=== PATIENT | female | born 1950 | race Caucasian/White ===

== ENCOUNTER 2017-10-15 17:13 | Inpatient (IN) | payer OTHER, MEDICARE ==
[~2017-10-15] VITALS: Ht 157.5 cm; Wt 90.3 kg
[2017-10-15 17:19] VITALS: BP 163/80
[2017-10-15] MEDS ORDERED: NORVASC5 MG PO (17:24)
[2017-10-15] MEDS ORDERED: COZAAR 50 MG TA50 M1 PO (17:25)
[2017-10-15] MEDS ORDERED: SERTRALINE HCL50 MG PO (17:25)
[2017-10-15 18:05] LABS: URINE BILIRUBIN NEGATIVE (Negative); URINE BLOOD NEGATIVE (Negative); URINE CLARITY CLEAR; URINE COLOR YELLOW; URINE GLUCOSE-RANDOM NEGATIVE (Negative); URINE KETONES NEGATIVE (Negative); URINE LEUKOCYTES-REFLEX NEGATIVE (Negative); URINE NITRITE-REFLEX NEGATIVE (Negative); URINE PROTEIN NEGATIVE (Negative); URINE SPECIFIC GRAVITY 1.015 (1.005-1.030); URINE UROBILINOGEN 0.2 E.U./dl (0.2-1.0)
[2017-10-15 18:14] LABS: ABSOLUTE BASOPHILS 0.1 thou/uL (0.0-0.2); ABSOLUTE EOSINOPHILS 0.1 thou/uL (0.0-0.7); ABSOLUTE LYMPHOCYTES 2.1 thou/uL (0.8-5.3); ABSOLUTE MONOCYTES 0.5 thou/uL (0.0-1.2); ABSOLUTE NEUTROPHILS 6.1 thou/uL (1.6-8.1); BASOPHILS 0.6 %; EOSINOPHILS 1.4 %; HEMATOCRIT 39.6 % (37.0-47.0); HEMOGLOBIN 13.7 gm/dL (12.0-15.0); LYMPHOCYTES 23.2 %; MCH 33.8 pg (26.0-34.0); MCHC 34.6 g/dL (28.0-37.0); MCV 97.6 fL (80.0-100.0); MONOCYTES 5.8 %; MPV 10.7 fl. (7.2-11.1); NUCLEATED RBCS 0 /100WBC; PLATELET COUNT* 174 thou/uL (150-400); RBC 4.06 mil/uL (4.20-5.00); RDW-CV 12.9 % (10.5-14.5); WBC 8.9 thou/uL (4.0-11.0)
[2017-10-15 18:27] LABS: CALCIUM 9.3 mg/dL (8.5-10.1); CREATININE 0.9 mg/dL (0.6-1.3); POTASSIUM 3.8 mmol/L (3.5-5.1)
[2017-10-15 18:33] LABS: ALBUMIN 3.9 g/dL (3.4-5.0); TOTAL BILIRUBIN 0.4 mg/dL (<0.1-1.0); TOTAL PROTEIN 7.1 g/dL (6.4-8.2)
[2017-10-15 18:51] LABS: TROPONIN-I LEVEL 1.56 ng/mL (<0.06)
[2017-10-15 19:44] LABS: APTT 36.6 Seconds (25.0-31.3)
[2017-10-15 20:30] VITALS: BP 145/80
[2017-10-15 21:22] VITALS: BP 137/73
[2017-10-16] VITALS (18 sets, daily range): BP systolic 100–154; BP diastolic 51–86
[2017-10-16 10:01] LABS: CHOLESTEROL 244 mg/dL (<200); HDL CHOLESTEROL 35 mg/dL (>40); LDL CHOLESTEROL 139 mg/dL (<100); TRIGLYCERIDE 350 mg/dL (<150); VLDL 70 mg/dL (<40)
[2017-10-16 10:04] LABS: SERUM ASSESSMENT Clear
--- NOTE | 2017-10-16 15:14 | 2DMMODE ---
[place] [address] 2 D/M-MODE ECHOCARDIOGRAM Name: JUAN F MOTA Room: [address] IN [facility]#: [id number] Admission: 10/15/17 Attend Phys: Kurtis Lara, Discharge: Date of : 50 Date of Service: 10/16/17 1513 Report #: [id number] THIS REPORT FOR: //name// APPROVED REPORT Study performed: 10/16/2017 10:58:37 EXAM: Comprehensive 2D, Doppler, and color-flow Echocardiogram Patient Location: In-Patient Room #: [facility] Status: routine BSA: 1.90 HR: 65 bpm BP: 154/77 mmHg Rhythm: NSR Other Information Study Quality: Good Indications Acute OH Chest Pain 2D Dimensions LVEF(%): 64.90 (>50%) IVSd: 13.33 (7-11mm) LVOT Diam: 18.69 (18-24mm) LVDd: 43.10 mm PWd: 9.66 (7-11mm) Ascending Ao: 28.88 (22-36mm) LVDs: 27.91 (25-40mm) Aortic Root: 29.73 mm Hernandez's LVEF: 64.90 % Volumes Left Atrial Volume (Systole) LA ESV Index: 31.90 mL/m2 Aortic Valve AoV Peak Wilberto.: 1.55 m/s AO Peak Gr.: 9.64 mmHg LVOT Max P.42 mmHg AO Mean Gr.: 4.93 mmHg LVOT Mean P.32 mmHg LVOT Max V: 1.36 m/s AO V2 VTI: 32.19 cm LVOT Mean V: 0.82 m/s PAULINA (VTI): 2.65 cm2 LVOT V1 VTI: 31.11 [place] [address] 2 D/M-MODE ECHOCARDIOGRAM Name: JUAN F MOTA Room: [address] IN [facility].#: [id number] Admission: 10/15/17 Attend Phys: Kurtis Lara, Discharge: Date of : 50 Date of Service: 10/16/17 1513 Report #: [id number] E/A Ratio: 0.85 MV Decel. Time: 283.94 ms MV E Max Wilberto.: 0.94 m/s MV PHT: 82.34 ms MVA (PHT): 2.67 cm2 TDI E/Lateral E': 11.75 E/Medial E': 13.43 Medial E' Wilberto.: 0.07 m/s Lateral E' Wilberto.: 0.08 m/s Pulmonary Valve PV Peak Wilberto.: 1.07 m/s PV Peak Gr.: 4.60 mmHg Tricuspid Valve TR Peak Gr.: 20.34 mmHg RVSP: 25.00 mmHg Left Ventricle The left ventricle is normal size. There is normal LV segmental wall motion. There is normal left ventricular wall thickness. Left ventricular systolic function is normal. LVEF is 60-65%. Grade I - abnormal relaxation pattern. Right Ventricle The right ventricle is normal size. The right ventricular systolic function is normal. Atria The left atrium size is normal. The right atrium size is normal. Aortic Valve The aortic valve is normal in structure. No aortic regurgitation is present. There is no aortic valvular stenosis. Mitral Valve There is mitral annular calcification. Trace mitral regurgitation. No evidence of mitral valve stenosis. Tricuspid Valve The tricuspid valve is normal in structure. Trace tricuspid regurgitation. The RVSP is ___25____ mmHg. Pulmonic Valve The pulmonary valve is normal in structure. There is no pulmonic [place] [address] 2 D/M-MODE ECHOCARDIOGRAM Name: JUAN F MOTA Room: [address] IN [facility]#: [id number] Admission: 10/15/17 Attend Phys: Kurtis Lara, Discharge: Date of : 50 Date of Service: 10/16/17 1513 Report #: [id number] Great Vessels The aortic root is normal in size. IVC is normal in size and collapses with >50% inspiration Pericardium There is no pericardial effusion. <Conclusion> The left ventricle is normal size. There is normal left ventricular wall thickness. Left ventricular systolic function is normal. LVEF is 60-65%. Grade I - abnormal relaxation pattern. Trace tricuspid regurgitation. The RVSP is ___25____ mmHg. <ELECTRONICALLY SIGNED> By: Willard Mills MD, FACC 10/16/17 1513 12 151 Willard Mills MD, FACC /INF
--- NOTE | 2017-10-16 16:23 | EKG ---
[place] [address] ELECTROCARDIOGRAM REPORT Name: JUAN F MOTA Room: [address] ADM IN [facility]#: [id number] Admission: 10/15/17 Attend Phys: Kurtis Lara MD Discharge: Date of : 50 Report #: [id number] THIS REPORT FOR: //name// [facility] ED Test Date: 2017-10-15 Test Time: 18:23:10 Pat Name: JUAN F MOTA Department: Room: [facility] Gender: F Scrub Wheel Operator: STUDENT : 1950 Requested By: Jayne Jacinto Order Number: [id number] MD: Willard Mills Measurements Intervals [place] Rate: 69 P: 42 MS: 173 QRS: -14 QRSD: 90 T: 89 QT: 401 QTc: 430 Interpretive Statements Sinus rhythm Repol abnrm suggests ischemia, anterolateral No previous ECG available for comparison Electronically Signed On 10-16-2017 16:23:31 MEDICAL LEADER by Willard Mills [email or web address] <ELECTRONICALLY SIGNED> By: Willard Mills MD, [facility] 10/16/17 1623 182 182 Willard Mills MD, [facility] /EPI
--- NOTE | 2017-10-16 17:07 | EKG ---
[place] [address] ELECTROCARDIOGRAM REPORT Name: JUAN F MOTA Room: [address] ADM IN ..#: [id number] Admission: 10/15/17 Attend Phys: Kurtis Lara MD Discharge: Date of : 50 Report #: [id number] THIS REPORT FOR: //name// [facility] Test Date: 2017-10-16 Test Time: 16:46:15 Pat Name: JUAN F MOTA Department: Room: [address] Gender: F Telephone Solicitor: 27 : 1950 Requested By: Willard Mills Order Number: [id number] Reading MD: Willard Mills Measurements Intervals [place] Rate: 79 P: 51 [place]: 177 QRS: -12 QRSD: 94 T: 74 QT: 406 QTc: 466 Interpretive Statements Sinus rhythm Probable left atrial enlargement RSR' in V1 or V2, probably normal variant Borderline repolarization abnormality Compared to ECG 10/15/2017 18:23:10 RSR' in V1 or V2 now present Possible ischemia no longer present Electronically Signed On 10-16-2017 17:07:34 DISTRIBUTION DISPATCHER by Willard Mills [email or web address] <ELECTRONICALLY SIGNED> By: Willard Mills MD, FACC 10/16/17 1707 1646 1646 Willard Mills MD, FAC /EPI
--- NOTE | 2017-10-16 17:07 | EKG ---
[place] [address] ELECTROCARDIOGRAM REPORT Name: JUAN F MOTA Room: [address] ADM IN .R.#: [id number] Admission: 10/15/17 Attend Phys: Kurtis Lara MD Discharge: Date of : 50 Report #: [id number] THIS REPORT FOR: //name// [facility] Test Date: 2017-10-16 Test Time: 13:37:45 Pat Name: JUAN F MOTA Department: Room: [address] Gender: F Acid Conditioner: 27 : 1950 Requested By: Mary Case Order Number: [id number] Reading MD: Willard Mills Measurements Intervals [place] Rate: 82 P: 56 [place]: 186 QRS: 7 QRSD: 90 T: 65 QT: 406 QTc: 475 Interpretive Statements Sinus rhythm Possible left atrial enlargement Nonspecific ST depression, anterior leads Compared to ECG 10/15/2017 18:23:10 ST (T wave) deviation now present Early repolarization no longer present Possible ischemia no longer present Electronically Signed On 10-16-2017 17:07:27 RESIDENTIAL BUILDING INSPECTOR by Willard Mills [email or web address] <ELECTRONICALLY SIGNED> By: Willard Mills MD, FACC 10/16/17 1707 1337 1337 Willard Mills MD, [facility] /EPI
--- NOTE | 2017-10-16 17:14 | CON ---
[address] [address] CONSULTATION Name: JUAN F MOTA Room: [address] IN .R.#: [id number] Admission: 10/15/17 Attend Phys: Kurtis Lara MD Discharge: Date of : 50 Report #: [id number] THIS REPORT FOR: //name// CC: Kurtis SPEARS CARDIOLOGY CONSULT INDICATION: Non-ST elevation myocardial infarction. HISTORY OF PRESENT ILLNESS: The patient is a very pleasant 67-year-old white female with no prior cardiac history. For the past 3 days, she has had intermittent "heartburn." Yesterday, the heartburn was quite significant. She had nausea and vomiting and clammy feeling with this as well. She presented to the Emergency Room for further evaluation. Her initial troponin was elevated consistent with non-ST elevation myocardial infarction. She was given an aspirin, nitroglycerin and placed on a heparin drip. EKG at that time showed some subtle T-wave inversion in the lateral and anteroseptal leads. No ST elevation was identified. At the time of my interview, the patient is more comfortable. She is not having any shortness of breath. She denies palpitations. She did have some radiation of discomfort to her left arm and fingers. PAST MEDICAL HISTORY: 1. Chronic tobacco use. 2. Hypertension. 3. Mild arthritis. PAST SURGICAL HISTORY: 1. Hysterectomy. 2. Endometriosis. FAMILY HISTORY: The patient's mother had bypass surgery in her 60s. SOCIAL HISTORY: The patient works for customer service. She smokes half a pack of cigarettes daily and drinks wine nightly. ALLERGIES: CODEINE. CURRENT MEDICATIONS: Amlodipine 5 mg at bedtime, losartan 50 mg at bedtime, sertraline 50 mg at bedtime. REVIEW OF SYSTEMS: A 14-point review of systems is positive for a cough that is nonproductive, chest discomfort as outlined above, history of heart murmur, vomiting without hematemesis, medical allergies as outlined above, arthritis without connective tissue disease and she wears [place] [address] CONSULTATION Name: JUAN F MOTA Room: [address]#: [id number] Admission: 10/15/17 Attend Phys: Kurtis Lara MD Discharge: Date of : 50 Report #: [id number]. Otherwise, 14-point review of systems was unremarkable. PHYSICAL EXAMINATION: VITAL SIGNS: Stable. Blood pressure 154/77, heart rate 75. GENERAL: This is a pleasant elderly female in no distress. Mood and affect appropriate. HEENT: Extraocular muscles intact. Mucous membranes are moist. NECK: Shows no jugular venous distention. There are no carotid bruits. CHEST: Reveals clear lung richardson without wheezes or rales. CARDIOVASCULAR: Reveals a regular rhythm with a soft grade 2/6 systolic ejection murmur at the right upper sternal border. I do not appreciate a gallop. ABDOMEN: Reveals normal bowel sounds. The abdomen is soft and nontender. EXTREMITIES: Shows no edema. Peripheral pulses are 2+ and easily palpable. SKIN: Warm and dry. RADIOLOGICAL DATA: A 12-lead EKG shows sinus rhythm with some nonspecific T-wave inversion in the anterolateral and anteroseptal leads. LABORATORY DATA: Reviewed. Electrolytes are within normal limits. BUN 14, creatinine 0.9, serum glucose 132. Initial troponin was 1.56 and now 2.04. Lipid profile is pending. White blood cell count 8.9, hemoglobin 13.7, platelet count 174,000. Chest x-ray shows no acute cardiopulmonary abnormality. IMPRESSION AND RECOMMENDATIONS: 1. Non-ST elevation myocardial infarction. The patient will go for left heart catheterization and coronary angiography today. Further intervention will be pending the results of that study. At this point in time, I would continue the heparin drip. Continue daily aspirin. Check fasting lipid profile. 2. Chronic tobacco use. Cessation discussed and advised. 3. Hypertension. Continue the patient's current antihypertensive regimen, may make adjustments post-catheterization pending those results. 4. Probable hyperlipidemia. Fasting lipid profile has been obtained and is pending. 5. Cardiac murmur consistent with aortic valvular sclerosis. We will obtain echocardiogram to rule out significant stenosis. <ELECTRONICALLY SIGNED> By: Willard Mills MD, FACC 10/16/17 1714 0950 1522Secretary Giovanny Mills MD, FACC /nt
[2017-10-17] VITALS: BP 143/64
[2017-10-17 03:58] VITALS: BP 157/83
[2017-10-17 05:31] LABS: ABSOLUTE EOSINOPHILS 0.1 thou/uL (0.0-0.7); ABSOLUTE LYMPHOCYTES 1.1 thou/uL (0.8-5.3); ABSOLUTE MONOCYTES 0.4 thou/uL (0.0-1.2); ABSOLUTE NEUTROPHILS 5.1 thou/uL (1.6-8.1); BASOPHILS 0.2 %; EOSINOPHILS 1.1 %; HEMATOCRIT 35.2 % (37.0-47.0); HEMOGLOBIN 12.4 gm/dL (12.0-15.0); LYMPHOCYTES 16.5 %; MCHC 35.2 g/dL (28.0-37.0); MCV 96.5 fL (80.0-100.0); MONOCYTES 5.9 %; NUCLEATED RBCS 0 /100WBC; PLATELET COUNT* 147 thou/uL (150-400); POLYS 76.3 %; RBC 3.65 mil/uL (4.20-5.00); RDW-CV 12.6 % (10.5-14.5); WBC 6.7 thou/uL (4.0-11.0)
[2017-10-17 05:36] LABS: CALCIUM 8.7 mg/dL (8.5-10.1)
[2017-10-17 07:09] VITALS: BP 138/81
[2017-10-17 08:55] VITALS: BP 138/81
[2017-10-17 09:04] VITALS: BP 138/81
[2017-10-17] MEDS ORDERED: BRILINTA90 MG PO (09:13)
[2017-10-17] MEDS ORDERED: LOPRESSOR25 PO (09:13)
[2017-10-17] MEDS ORDERED: ASPIR 8181 MG PO (09:14)
[2017-10-17] MEDS ORDERED: LIPITOR40 MG PO (09:14)
[2017-10-17] MEDS ORDERED: NITROGLYCERIN0.4 MG SUBLING (09:15)
[2017-10-17 12:32] VITALS: BP 138/81
--- NOTE | 2017-10-17 13:11 | EKG ---
[place] [address] ELECTROCARDIOGRAM REPORT Name: JUAN F MOTA Room: [address] ADM IN [facility].#: [id number] Admission: 10/15/17 Attend Phys: Kurtis Lara MD Discharge: Date of : 50 Report #: [id number] THIS REPORT FOR: //name// [facility] Test Date: 2017-10-17 Test Time: 08:43:09 Pat Name: JUAN F MOTA Department: Room: [address] Gender: F Isotope Technician: 14 : 1950 Requested By: Markel Ruvalcaba Order Number: [id number] Reading MD: Markel Ruvalcaba Measurements Intervals [place] Rate: 72 P: 46 [place]: 184 QRS: -25 QRSD: 92 T: 90 QT: 402 QTc: 440 Interpretive Statements Sinus rhythm Borderline left axis deviation RSR' in V1 or V2, probably normal variant Nonspecific repol abnormality, lateral leads Compared to ECG 10/16/2017 16:46:15 No significant changes Electronically Signed On 10-17-2017 13:11:16 WATCHER LOOKOUT TOWER by Markel Ruvalcaba [email or web address] <ELECTRONICALLY SIGNED> By: Markel Ruvalcaba MD, FAC 10/17/17 1311 0843 0843 Markel Ruvalcaba MD, [facility] /EPI
--- NOTE | 2017-10-19 18:17 | CARD ---
[address] [address] CARDIAC CATH REPORT Name: JUAN F MOTA Room: [address]#: [id number] Admission: 10/15/17 Attend Phys: Kurtis Lara MD Discharge: 10/17/17 Date of : 50 Report #: [id number] THIS REPORT FOR: //name// APPROVED REPORT Patient Details Patient Status: In-Patient Room #: 226 The patient is a 67 year-old female Event Personnel Willard Mills Biological Science Technician Fish, Joanne Salgado RN Auto Self Service Station Attendant, Linda Ron RN Monitor, Osmar Rogers Svoboda, Mindy RTR Monitor, Markel Ruvalcaba Assistant Toddler Teacher, Coni Desir Monitor Procedures Performed Art Access - R radial artery Left Heart Cath w/or w/o Coronaries [id number] LHC , PTCA with Stenting Indication Non-STEMI Risk Factors Tobacco History () Procedure Narrative The patient was brought electively to the Cardiac Catheterization Laboratory and was prepped and draped in a sterile manner. The right wrist was infiltrated with 1% Lidocaine subcutaneous anesthesia. A Slender Glidesheath sheath was inserted into the right radial artery. Coronary angiography was performed using coronary diagnostic catheters. The right coronary system was accessed and visualized with a 3DRC 5fr catheter. The left coronary system was accessed and visualized with a DCR: Braulio 5fr catheter. The left ventricle was accessed and visualized with a PC: Angled Pig 5fr catheter. Left ventricular/Aortic Valve gradient assessed via catheter pullback. Left ventriculogram was performed in GUERRA projection. The patient tolerated the procedure well and there were no complications associated with the procedure. There was no hematoma. Intraoperative Conscious Sedation Sedation start time: 12:17 Case end Time: 13:34 Fentanyl 100 mcg Vers[place] 4 [place] [address] CARDIAC CATH REPORT Name: JUAN F MOTA Room: [address] IN [facility].#: [id number] Admission: 10/15/17 Attend Phys: Kurtis Lara MD Discharge: 10/17/17 Date of : 50 Report #: [id number] Fluoro Time: 18 minutes Dose: DAP [id number] cGycm2 2637.62 mGy Contrast Type and Amount: Omnipaque 320 ml Diagnostic Cath Left Main The left main coronary artery is normal. LAD The left anterior descending coronary artery is mildly plaqued up to 10% in its proximal and midportion. The distal vessel appears normal. Diagonal 1 The first diagonal branch is normal. Diagonal 2 The second diagonal branch has 30% narrowing proximally. The remainder the vessel appears normal. Circumflex The circumflex coronary artery has a 95% narrowing in its midportion. The remainder the vessel is free of significant disease. OM1 The first obtuse marginal branch is normal. OM2 The second obtuse marginal branch is normal. Right Coronary The right coronary artery has 30% narrowing in its proximal segment 20% narrowing in its midportion and distally appears normal. R PDA The right PDA has a 90% proximal stenosis. The remainder the vessel appears normal. RPLV The right posterior lateral LV branch appears normal throughout. Left Ventriculography The left ventricle is normal in size with normal contractility. The left ventricular ejection fraction is estimated to be 65-70%. Hemodynamics The aortic pressure is 121/58 mmHg with a mean of mmHg. The left ventricular pressure is 140/10 mmHg with a mean of mmHg. The left ventricular end diastolic pressure is 23 mmHg. There was no gradient across the aortic valve upon pullback. Pullback from the left ventricle to the aorta revealed no gradient across the aortic valve. PCI Technique Lesion Anticoagulation was achieved with Heparin. Percutaneous coronary intervention was performed on the mid circumflex artery segment. The lesion stenosis prior to intervention was 90% with AMANDA 3 flow. A 6FR XB 3.5 100CM Guide Catheter was used to engage the LCA ostium. A IG: BMW 190cm Interventional Guidewire [place] [address] CARDIAC CATH REPORT Name: JUAN F MOTA Room: [address] IN .R.#: [id number] Admission: 10/15/17 Attend Phys: Kurtis Lara MD Discharge: 10/17/17 Date of : 50 Report #: [id number] BALLOON DILATION A Balloon catheter Mini Trek RX 2.0 X 8 was inserted and inflated up to 16.00atm for 18seconds. Repeat angiography revealed the following post-dilatation results: 50% stenosis. STENT DEPLOYMENT A drug-eluting stent Xience Alpine RX 2.25X12 was inserted and inflated up to 6.00atm for 17seconds. Repeat angiography revealed the following post-stent deployment results: 0% stenosis. Additional Inflation: 14.00atm for 10seconds. Additional Inflation: 17.00atm for 12seconds. Final angiography reveals 0 % stenosis with AMANDA 3 flow. PCI Technique Lesion 2 Percutaneous Coronary Intervention was performed on the right posterolateral descending artery segment. Percutaneous coronary intervention was performed on the right posterior descending artery. The lesion stenosis prior to intervention was 90% with AMANDA 3 flow. A 6F 3DRC Guide Catheter was used to engage the RCA ostium. A IG: BMW 190cm Interventional Guidewire was used to cross the lesion. Balloon Dilation A Balloon catheter Mini Trek RX 2.0 X 8 was inserted and inflated up to 8.00atm for 11seconds. Repeat angiography revealed the following post-dilatation results: 60% stenosis. Stent Deployment A drug-eluting stent Xience Alpine RX 2.25X12 was inserted and inflated up to 7.00atm for 14seconds. Repeat angiography revealed the following post-stent deployment results: 0% stenosis. Additional Inflation: 10.00atm for 11seconds. Final angiography reveals 0 % stenosis with AMANDA 3 flow. Conclusion 1. 90% stenosis noted of the mid circumflex artery 2. 90% stenosis noted of the posterior descending branch of the RCA which had an anamalous takeoff form the left coronary cusp 3. successful placement of drug eluting stents in the circumflex and distal rca Recommendations Smoking Cessation Cardiac Rehabilitation Referral [address] [address] CARDIAC CATH REPORT Name: JUAN F MOTA Room: [address] IN [facility].#: [id number] Admission: 10/15/17 Attend Phys: Kurtis Lara MD Discharge: 10/17/17 Date of : 50 Report #: [id number] Aggressive Medical Therapy Diagnostic Cath Approved by: Willard Mills MD Date/Time: <ELECTRONICALLY SIGNED> By: Markel Ruvalcaba MD, FACC 10/19/171816 16 16Daharika Ruvalcaba MD, FACC /INF
--- NOTE | 2017-10-23 14:04 | H ---
[place] [address] HISTORY AND PHYSICAL Name: JUAN F MOTA Room: [address]#: [id number] Admission: 10/15/17 Attend Phys: Kurtis Lara MD Discharge: 10/17/17 Date of : 50 Report #: [id number] THIS REPORT FOR: //name// CC: Kurtis SPEARS DATE OF SERVICE: 10/15/2017 CHIEF COMPLAINT OR REASON FOR ADMISSION: Chest discomfort, nausea and vomiting. HISTORY OF PRESENT ILLNESS: This is a 67-year-old lady with a known history of smoking, hypertension, mentions that about 3 days ago, she woke up with severe epigastric pain, which made her nauseous and sick to her stomach, and since then, she has noticed intermittent episodes where she has abdominal discomfort at various intervals, she feels that it is mostly after eating and that makes her having pain and nausea, and therefore, she is seen in the emergency department. She has EKG changes and also she has elevated troponin. She denies any previous cardiac history. She denies any previous cardiac testing. She is an active smoker. She denies any cough, phlegm, any travel or sick contact, otherwise. PAST MEDICAL HISTORY: Hypertension. CURRENT MEDICATIONS: List as reported amlodipine, losartan, sertraline. ALLERGIES: ALLERGIC TO CODEINE. REVIEW OF SYSTEMS: HEAD: No complaints of any headache. EYES: No visual symptoms. EARS: No hearing difficulty. NOSE: No nasal discharge. NECK: No neck pain or neck swelling. THROAT: No soreness in throat. LUNGS: No cough or shortness of breath. CARDIOVASCULAR: Chest discomfort. GASTROINTESTINAL: Nausea. GENITOURINARY: No urinary frequency or urgency. SKIN: No complaints of skin lesions, skin rashes. ENDOCRINE: No complaints of diabetes. PSYCHIATRIC: Anxiety. HEMATOLOGIC: No complaints of easy bruising or easy bleeding. MUSCULOSKELETAL: Currently, denies any aches or pains in joint. NEUROLOGIC: No sensory or motor complaints. FAMILY MEDICAL HISTORY: Positive for mother having heart disease in [place] 60s[place] [address] HISTORY AND PHYSICAL Name: JUAN F MOTA Room: [address]#: [id number] Admission: 10/15/17 Attend Phys: Kurtis Lara MD Discharge: 10/17/17 Date of : 50 Report #: [id number] SOCIAL HISTORY: Active smoker. Occasional alcoholism. Denies any recreational drug use. PHYSICAL EXAMINATION: GENERAL: This is a 67-year-old lady seen in the emergency department, is awake and alert, [id number] distress. VITAL SIGNS: Reviewed. Temperature afebrile, pulse is 82, respiratory rate of 16, blood pressure 160/80, saturating 95%. HEAD: Atraumatic, normocephalic. EYES: Conjunctivae are clear. Pupils are reactive. Extraocular movements appeared to be intact. NOSE: There is no nasal discharge. NECK: Supple, no thyromegaly. No JVP appreciated. LUNGS: Diminished. CARDIOVASCULAR: S1 and S2 appears to be regular. ABDOMEN: Soft, nontender, no organomegaly appreciated. Bowel sounds are active. GENITOURINARY: Deferred. RECTAL: Deferred. SKIN: Warm and dry. EXTREMITIES: No cyanosis, clubbing or pedal edema noticed. VASCULAR: Upper and lower extremity pulses appear to be equal. NEUROLOGIC: The patient is alert, conversational, able to move all extremities. Grossly sensory, motor, and cranial nerve system appears to be intact. BACK: Limited. Gait is not evaluated. LABORATORY DATA: Sodium 141, potassium 3.8, BUN is 14, creatinine 0.9. Lipase is 137. Troponin is elevated at 1.5. CPK is 118. Hemoglobin 13, hematocrit 39, WBC count is 8.9. Urinalysis is negative. I do not have a chest x-ray. EKG shows mild ST depression in lead I and aVL and flattening of T waves on the lateral lead. ASSESSMENT AND PLAN: This is a 67-year-old lady who presents with chest discomfort, elevated troponin, active smoker, hypertensive. IMPRESSION: 1. Non-ST elevation myocardial infarction. 2. Active smoking. 3. Hypertension, accelerated. PLAN: To admit this patient, start her on anticoagulation with heparin per Cardiology protocol. Cardiology evaluation, trend troponins. Telemetry monitoring. Smoking cessation educated to [place] [address] HISTORY AND PHYSICAL Name: JUAN F MOTA Room: [address] IN [facility].#: [id number] Admission: 10/15/17 Attend Phys: Kurtis Lara MD Discharge: 10/17/17 Date of : 50 Report #: [id number] prognosis is extremely guarded. For further plan and management, please also see orders and consults. <ELECTRONICALLY SIGNED> By: Kurtis Lara MD 10/23/17 1404 1926 2033Animarina Lara MD /[facility]
== END 2017-10-17 13:24 | disposition home or self-care (01) | DRG 247 ==
LOC: M.ERS 17:13 → M.TBA-ER 19:40 → M.2W 19:40
PROVIDERS: Internal Medicine Cardiovascular Disease; Nurse Practitioner Family; ADMIT Internal Medicine
PROC: 027034Z Dilation of Coronary Artery, One Artery with Drug-eluting Intraluminal Device, Percutaneous Approach (ICD-10-PCS; 2017-10-15)
PROC: B2111ZZ Fluoroscopy of Multiple Coronary Arteries using Low Osmolar Contrast (ICD-10-PCS; 2017-10-15)
PROC: 4A023N7 Measurement of Cardiac Sampling and Pressure, Left Heart, Percutaneous Approach (ICD-10-PCS; 2017-10-15)
PROC: B24BZZ4 Ultrasonography of Heart with Aorta, Transesophageal (ICD-10-PCS; principal; 2017-10-16)
DX: I21.4 Non-ST elevation (NSTEMI) myocardial infarction (principal); I10 Essential (primary) hypertension; R01.1 Cardiac murmur, unspecified; M19.90 Unspecified osteoarthritis, unspecified site; F17.210 Nicotine dependence, cigarettes, uncomplicated; Z79.82 Long term (current) use of aspirin; Z71.6 Tobacco abuse counseling; Z79.899 Other long term (current) drug therapy; Z88.5 Allergy status to narcotic agent; Z82.49 Family history of ischemic heart disease and other diseases of the circulatory system

== ENCOUNTER → 2021-01-26 | Outpatient (CLI) | payer OTHER, MEDICARE ==
[~2021-01-26] MED LIST: ASPIR 8181 MG PO; BRILINTA90 MG PO; COZAAR 50 MG TA50 M1 PO; LIPITOR40 MG PO; LOPRESSOR25 PO; NITROGLYCERIN0.4 MG SUBLING; NORVASC5 MG PO; SERTRALINE HCL50 MG PO
[2021-01-26 13:04] LABS: CREATININE 0.7 mg/dL (0.6-1.3)
== END ==
LOC: M.LAB 01-20 09:43
PROVIDERS: ATTEND Surgery Vascular Surgery
DX: G31.9 Degenerative disease of nervous system, unspecified (principal); J32.0 Chronic maxillary sinusitis; K04.7 Periapical abscess without sinus; I65.23 Occlusion and stenosis of bilateral carotid arteries